=== PATIENT | male | born 1975 | race Caucasian/White ===

== ENCOUNTER → 2023-08-15 | Outpatient (CLI) | payer BC ==
[~2023-08-15] MED LIST: CALCIUM CITRAT950 MG PO; EPIPEN 2-PAK1 MG/ML IM; OMNICEF 300MG300 MG; PREDNISONE10 MG PO; PRILOSEC 20MG20 MG PO; PROBIOTIC-SUNMARK PO; ZITHROMAX Z PA250 MG PO
== END ==
LOC: MHCPAIN 11:13
DX: M94.0 Chondrocostal junction syndrome [Tietze] (principal); R07.89 Other chest pain
CPT/HCPCS: G0463

== ENCOUNTER → 2023-11-14 | Outpatient (CLI) | payer BC | LOC: MHCPAIN 14:28 | DX: M94.0 Chondrocostal junction syndrome [Tietze] (principal); R07.89 Other chest pain | CPT/HCPCS: G0463 ==

== ENCOUNTER 2023-12-13 14:39 | Emergency (ER) | payer BC ==
[~2023-12-13] VITALS: Ht 175.3 cm; Wt 87.3 kg
[2023-12-13] MEDS ORDERED: LORazepam 2 MG/ML 1 ML VIAL IV ONE (15:15)
[2023-12-13] MEDS ORDERED: NS 1,000 ML IV ONE (15:15)
[2023-12-13] MEDS ORDERED: Glucagon 1 MG VIAL IV ONE (15:15)
[2023-12-13] MEDS ORDERED: LR 1,000 ML IV SCH (16:00)
[2023-12-13] MEDS ORDERED: dexAMETHasone 10 MG/ML VIAL ONE (16:09)
[2023-12-13] MEDS ORDERED: Ondansetron 4 MG/2 ML VIAL ONE (16:09)
[2023-12-13] MEDS ORDERED: fentaNYL 50 MCG/ML 2 ML VIAL ONE (16:09)
[2023-12-13] MEDS ORDERED: Rocuronium 50 MG/5 ML Multi-Dose VIAL ONE (16:10)
[2023-12-13] MEDS ORDERED: Succinylcholine PF 100 MG/5 ML SYRINGE/POLY AMP IV ONE (16:10)
[2023-12-13] MEDS ORDERED: LR 1,000 ML IV ONE (16:44)
[2023-12-13] MEDS ORDERED: Ondansetron 4 MG/2 ML VIAL IV PRN (16:45)
[2023-12-13] MEDS ORDERED: Meperidine 50 MG/ML 1 ML VIAL IV PRN (16:45)
[2023-12-13] MEDS ORDERED: Ketorolac 30 MG/ML VIAL IV PRN (16:45)
[2023-12-13] MEDS ORDERED: fentaNYL 50 MCG/ML 2 ML VIAL IV PRN (16:45)
[2023-12-13] MEDS ORDERED: HYDROmorphone 2 MG/1 ML VIAL IV PRN (16:45)
[2023-12-13] MEDS ORDERED: hydrALAZINE 20 MG/ML 1 ML VIAL IV PRN (16:45)
[2023-12-13 18:38] VITALS: BP 108/69; PULSE 85; TEMP 97
== END 2023-12-13 17:55 | disposition home or self-care (01) ==
LOC: COL.ER 14:39
DX: K22.2 Esophageal obstruction (principal); K21.9 Gastro-esophageal reflux disease without esophagitis; Z79.899 Other long term (current) drug therapy
CPT/HCPCS: J0330; J1100; J1610; J2060; J2405; J2704; J3010; J7030; J7120

== ENCOUNTER → 2024-03-16 | Outpatient (CLI) | payer BC | LOC: MHCPAIN 13:32 | DX: M94.0 Chondrocostal junction syndrome [Tietze] (principal); R07.2 Precordial pain | CPT/HCPCS: G0463 ==

== ENCOUNTER 2024-04-09 18:51 | Emergency (ER) | payer BC ==
[~2024-04-09] VITALS: Ht 175.3 cm; Wt 87.7 kg
[2024-04-09 18:59] VITALS: TEMP 98.4
[2024-04-09 19:15] LABS: BASO # 0.1 K/mm3 (0.0-0.2); BASO % 0.5 % (0.0-2.0); EOS # 0.2 K/mm3 (0.0-0.7); EOS % 1.9 % (0.0-4.0); GRAN # 8.3 K/mm3 (1.4-6.5); HEMATOCRIT 44.3 % (42.0-52.0); HEMOGLOBIN 16.2 g/dl (13.5-18.0); LYMPH # 1.9 K/mm3 (1.2-3.4); LYMPH % 16.6 % (20.0-51.0); MEAN CELL VOLUME 88 fl (80.0-100.0); MEAN CORPUSCULAR HEMOGLOBIN 32 pg (27-31); MEAN CORPUSCULAR HGB CONC 37 g/dl (33.0-37.0); MEAN PLATELET VOLUME 10.2 fl (7.4-10.4); MONO # 0.7 K/mm3 (0.1-0.6); MONO % 6.6 % (1.7-9.3); PLATELET COUNT 215 K/mm3 (130-400); RED BLOOD COUNT 5.04 M/mm3 (4.20-5.60); REDCELL DISTRIBUTION WIDTH-CV 12.2 % (11.5-14.5)
[2024-04-09 19:20] LABS: PROTHROMBIN TIME 11.4 SECONDS (9.7-12.8)
[2024-04-09 19:23] LABS: PARTIAL THROMBOPLASTIN TIME 34.3 SECONDS (26.0-37.0)
[2024-04-09 19:33] LABS: ALANINE AMINOTRANSFERASE 32 U/L (0-55); ALBUMIN 4.1 g/dL (3.5-5.0); ALKALINE PHOSPHATASE 80 U/L (40-150); ANION GAP 9 mmol/L (7-16); AST,SGOT 31 U/L (5-34); BILIRUBIN,TOTAL 0.9 mg/dL (0.2-1.2); BLOOD UREA NITROGEN 18 mg/dL (9-21); CALCIUM 9.7 mg/dL (8.4-10.2); CHLORIDE 108 mEq/L (98-107); CREATININE, serum 1.25 mg/dL (0.72-1.25); GLUCOSE 91 mg/dL (70-99); MAGNESIUM 2.3 mg/dL (1.6-2.6); POTASSIUM 3.9 mEq/L (3.5-4.5); SODIUM 142 mEq/L (136-145)
[2024-04-09 19:42] LABS: TROPONIN-I < 0.010 ng/mL (0.00-0.033)
[2024-04-09] MEDS ORDERED: Iohexol 300 - 100 ML VIAL IV ONE (19:45)
[2024-04-09] MEDS ORDERED: NS 100 ML IV SCH (19:46)
[2024-04-09 20:07] VITALS: BP 138/73; PULSE 78
== END 2024-04-09 20:13 | disposition home or self-care (01) ==
LOC: COL.ER 18:51
PROVIDERS: Family Medicine
DX: K20.0 Eosinophilic esophagitis (principal)
CPT/HCPCS: Q9967

== ENCOUNTER → 2024-06-29 | Outpatient (CLI) | payer BC | LOC: MHCPAIN 15:12 | DX: M25.512 Pain in left shoulder (principal); R07.89 Other chest pain | CPT/HCPCS: G0463 ==

== ENCOUNTER → 2024-07-29 | Outpatient (CLI) | payer BC | LOC: COL.RAD 08:11 | DX: M25.512 Pain in left shoulder (principal) ==

== ENCOUNTER → 2024-08-12 | Outpatient (CLI) | payer BC ==
[~2024-08-12] MED LIST changes: +Lidocaine PF 1% (10 MG/ML) 5 ML VIAL ONE; +Triamcinolone 40 MG/ML 1 ML VIAL ONE
== END ==
LOC: MHCPAIN 13:32
DX: M25.512 Pain in left shoulder (principal); R07.89 Other chest pain
CPT/HCPCS: G0463; J3301

== ENCOUNTER 2024-08-27 11:14 | Day surgery (SDC) | payer BC ==
[~2024-08-27] VITALS: Ht 175.3 cm; Wt 84.9 kg
[~2024-08-27 11:14] MED LIST changes: +LR 1,000 ML IV SCH; -Lidocaine PF 1% (10 MG/ML) 5 ML VIAL ONE; +Ondansetron 4 MG/2 ML VIAL IV PRN; -Triamcinolone 40 MG/ML 1 ML VIAL ONE
[2024-08-27 12:23] VITALS: BP 126/82; PULSE 86; TEMP 97.4
--- NOTE | 2024-08-27 12:26 | NUR ---
Pt arrived with self, to call ride later; bowels WNL for the procedure, VSS and RR even and unlabored; reviewed meds/allergies/pharm/history and updated; to place IV and await procedure.
[2024-08-27] MEDS ORDERED: fentaNYL 50 MCG/ML 2 ML VIAL ONE (13:04)
[2024-08-27] MEDS ORDERED: Lidocaine PF 2% (20 MG/ML) 5 ML VIAL ONE (13:04)
[2024-08-27 13:30] VITALS: BP 112/79; PULSE 85
[2024-08-27 13:45] VITALS: BP 111/74; PULSE 78
--- NOTE | 2024-08-27 14:06 | NUR ---
1330- PT BACK TO GI BAY 3 FROM COLON. ASSISTED TO RECLINER. MONITORS IN PLACE AND VS OBTAINED. REQUESTING WATER TO DRINK. 1345- TOLERATING WATER. NO COMPLAINTS OF NAUSEA OR PAIN. 1348- IV REMOVED PER ORDERS. 1355- DR. RAMIREZ IN TO TALK WITH PT AND SPOUSE. DISCHARGE INSTRUCTIONS DONE WITH PT AND . 1400- DISCHARGED FROM HOSPITAL VIA WHEELCHAIR TO PRIVATE VEHICLE DRIVEN BY SPOUSE.
== END 2024-08-27 14:00 ==
LOC: SDCO 11:14
DX: Z12.11 Encounter for screening for malignant neoplasm of colon (principal); K57.30 Diverticulosis of large intestine without perforation or abscess without bleeding; G47.33 Obstructive sleep apnea (adult) (pediatric); Z80.0 Family history of malignant neoplasm of digestive organs
CPT/HCPCS: J2704; J3010; J7120